=== PATIENT | female | born 1945 | race Caucasian/White ===

== ENCOUNTER 2016-07-10 10:03 | Inpatient (IN) | payer OTHER ==
[2016-07-08 11:44] LABS: MANUAL DIFF NEEDED? NO
[2016-07-08 11:59] LABS: BASO% 0.4 % (0.0-0.8); EOS# 0.23 X1000 (0.0-0.7); EOS% 2.9 % (0.0-10.0); HEMATOCRIT 30.3 % (37.0-47.0); HEMOGLOBIN 9.3 g/dL (12.0-16.0); IMM GRAN# 0.03 X1000 (0.0-0.04); IMM GRAN% 0.4 % (0.0-0.5); LYMPH# 0.91 X1000 (1.2-3.4); LYMPH% 11.5 % (20.5-51.1); MCH 28.8 PG (27-31); MCHC 30.7 g/dL (33-37); MCV 93.8 FL (81-99); MONO# 0.61 X1000 (0.11-0.59); MONO% 7.7 % (1.7-9.3); MPV 8.3 FL (7.4-10.4); NEUT% 77.1 % (42.2-75.2); PLT 412 X1000 (130-400); RBC 3.23 XMIL (4.2-5.4)
[2016-07-08 12:15] LABS: CALCIUM 9.5 mg/dL (8.8-10.2); POTASSIUM 4.1 mmol/L (3.5-5.1)
--- NOTE | 2016-07-08 12:30 | EKG Report ---
Test Performed on : 07/08/2016 11:26:52 AM Test Reason : PAT Blood Pressure : / mmHG Vent. Rate : 050 BPM Atrial Rate : 050 BPM P-R Int : 176 ms QRS Dur : 084 ms QT Int : 442 ms P-R-T Axes : 056 001 009 degrees QTc Int : 402 ms Sinus bradycardia. Inferior infarct , age undetermined Abnormal ECG When compared with ECG of 28-FEB-2016 14:54, Borderline criteria for Anterior infarct are no longer present Inferior infarct is now present Nonspecific T wave abnormality now evident in Inferior leads Confirmed by Azar CONLEY, Eric Hand ([id number]) on 07/08/2016 4:28:00 PM
[2016-07-10] MEDS ORDERED: REGLAN ONE (11:53)
[2016-07-10] MEDS ORDERED: LR 1,000 ML ONE ×3 (11:53→15:33)
[2016-07-10] MEDS ORDERED: PEPCID ONE (11:53)
[2016-07-10] MEDS ORDERED: KEFZOL 1 GM/D5W 50 ML ONE (11:54)
[2016-07-10] MEDS ORDERED: DIPRIVAN 1% ONE (12:08)
[2016-07-10] MEDS ORDERED: FENTANYL ONE (12:08)
[2016-07-10] MEDS ORDERED: VERSED ONE (12:08)
[2016-07-10] MEDS ORDERED: MARCAINE 0.25% PF/EPI 1:200,000 ONE (12:42)
[2016-07-10] MEDS ORDERED: METHYLENE BLUE 1% ONE ×2 (12:42)
--- NOTE | 2016-07-10 12:53 | Diag Imaging Result Document ---
PROCEDURE NAME: LYMPHOSCINTIGRAPHY W/IMG - 07/10/2016 LYMPHOSCINTIGRAPHY OF THE LEFT BREAST: COMPARISON: Outside MRI from 06/10/2016. FINDINGS: 534 mCi of radiotracer was injected. After the appropriate delay, there was visualization of at least 1 sentinel lymph node in the left axilla. IMPRESSION: Successful localization of sentinel lymph node in the left axilla.
[2016-07-10] MEDS: MORPHINE ONE ×3 (15:00→15:17)
--- NOTE | 2016-07-10 15:28 | OPERATIVE NOTE ---
PROCEDURE DATE: 07/10/2016 PROCEDURE: 1. [place] lymph node biopsy left axilla. 2. Bilateral total mastectomy. SURGEON: Chan Serrano MD DIRECTOR OF COLLECTIONS: Ana PREOPERATIVE DIAGNOSIS: Cancer of the left breast. POSTOPERATIVE DIAGNOSIS: Cancer of the left breast. FINDINGS: The sentinel lymph node biopsies, 3 specimens sent, 2 nodes identified, both were negative on frozen section. DESCRIPTION OF PROCEDURE: Satisfactory general endotracheal anesthesia was achieved, both breasts and axillae were prepped and draped in a sterile fashion. We started on the right side and made an elliptical type hang to cover the breast. We incised the skin, and carried it to the right axilla. We went into the subcutaneous tissue. We placed our breast hooks superiorly and developed the subcutaneous flap superiorly. We did the same inferiorly. After we had progressed down to the muscle superiorly and inferiorly. We then took the breast off the pectoralis major going from medial to lateral. As we came toward the axilla, we amputated the breast laterally. We achieved satisfactory hemostasis with electrocautery. We irrigated out the wound. We placed a Yasmany drain under the superior flap and brought it out medially, it went into toward the axilla and brought it out laterally, these were secured to the skin with 0 silk. We then closed the skin with satish. Negative pressure was applied to evacuate the space. We turned our attention to the left side and again made an elliptical hang around the nipple areolar complex extending it toward the axilla. We incised the skin into the subcutaneous tissue. We then progressed toward the axilla and into the axilla. We interrogated the axilla with the gamma probe, we identified 3 different areas that had activity. One was very hot at 6000, another was about 1500. The third 1 the #2 specimen we did do the count. We sent the 3 specimens for frozen section. We then developed the superior flap to this clavicle as we had done on the right side with an inferior flap to the rectus muscle and the serratus muscle. We then took the breast off from medial to lateral. As we came toward the axilla, we amputated the breast laterally. Frozen sections of the sentinel lymph nodes came back negative. Hemostasis was satisfactory. We placed a Yasmany drain under the superior flap, brought it out medially and one laterally into the axilla, secured them at the skin with the silk stitches again. We closed the skin with satish. Negative pressure was applied evacuating the space. Sterile dressings were applied. She tolerated it well, was sent to the recovery room in satisfactory condition. MTDD
[2016-07-10] MEDS ORDERED: MORPHINE ONE (15:32)
[2016-07-10] MEDS ORDERED: ZOFRAN ONE (15:32)
[2016-07-10] MEDS ORDERED: XYLOCAINE-MPF 2% ONE (15:33)
[2016-07-10] MEDS ORDERED: QUELICIN (DOSE) ONE (15:33)
[2016-07-10] MEDS ORDERED: EPHEDRINE ONE (15:33)
[2016-07-10] MEDS ORDERED: DECADRON ONE (15:33)
[2016-07-10] MEDS ORDERED: PHENERGAN ONE (16:00)
[2016-07-10] MEDS ORDERED: NORCO-10 PO PRN (16:15)
[2016-07-10] MEDS ORDERED: ZOFRAN IV PRN (16:15)
[2016-07-10] MEDS: LR 1,000 ML IV SCH ×2 (16:32→21:21)
[2016-07-10] MEDS: BUPRENEX IV PRN (16:48)
[2016-07-10] MEDS: KEFZOL 1 GM/D5W 50 ML IV SCH (21:21)
[2016-07-10] MEDS: ZYRTEC PO SCH (21:22)
[2016-07-10] MEDS: TOPAMAX PO SCH (21:22)
[2016-07-10] MEDS: RITALIN PO SCH (21:22)
[2016-07-10] MEDS: LYRICA PO SCH (21:22)
[2016-07-10] MEDS: COREG PO SCH (21:22)
[2016-07-10] MEDS: PERIDEX MT SCH (21:23)
[2016-07-11] MEDS: KEFZOL 1 GM/D5W 50 ML IV SCH (03:46)
[2016-07-11] MEDS: LR 1,000 ML IV SCH (03:46)
[2016-07-11] MEDS ORDERED: DESYREL PO SCH ×2 (09:00→21:00)
[2016-07-11] MEDS ORDERED: PRAVACHOL PO SCH ×2 (09:00→21:00)
[2016-07-11] MEDS ORDERED: LR 1,000 ML IV SCH (09:45)
[2016-07-11] MEDS: COREG PO SCH (10:01)
[2016-07-11] MEDS: PRILOSEC PO SCH (10:01)
[2016-07-11] MEDS: RITALIN PO SCH (10:01)
[2016-07-11] MEDS: PROCARDIA ER PO SCH (10:02)
[2016-07-11] MEDS: ZYRTEC PO SCH (10:02)
[2016-07-11] MEDS: TOPAMAX PO SCH (10:02)
[2016-07-11] MEDS: LYRICA PO SCH (10:03)
[2016-07-11] MEDS: KLOR-CON PO SCH (10:03)
[2016-07-11] MEDS: PERIDEX MT SCH (10:09)
[2016-07-11] MEDS: BUPRENEX IV PRN (12:48)
[2016-07-12] MEDS: RITALIN PO SCH ×2 (00:26→09:42)
[2016-07-12] MEDS: LYRICA PO SCH ×2 (00:28→09:43)
[2016-07-12] MEDS: TOPAMAX PO SCH ×2 (00:28→09:42)
[2016-07-12] MEDS: ZYRTEC PO SCH ×2 (00:28→09:42)
[2016-07-12] MEDS: PERIDEX MT SCH ×2 (00:28→09:48)
[2016-07-12] MEDS: COREG PO SCH ×2 (00:29→09:42)
[2016-07-12] MEDS: BUPRENEX IV PRN (04:58)
[2016-07-12] MEDS: KLOR-CON PO SCH (09:42)
[2016-07-12] MEDS: PROCARDIA ER PO SCH (09:42)
[2016-07-12] MEDS: PRILOSEC PO SCH (09:42)
[2016-07-12 11:17] VITALS: BP 149/71
== END 2016-07-12 15:10 | disposition home or self-care (01) | DRG 581 ==
LOC: OPS 10:03 → EDSTATUS 13:00 → 4N 15:31 → OBSVTOIN 15:31
PROVIDERS: ADMIT Surgery; ATTEND Surgery
PROC: 0HTV0ZZ Resection of Bilateral Breast, Open Approach (ICD-10-PCS; principal; 2016-07-10 12:23)
PROC: 07B60ZX Excision of Left Axillary Lymphatic, Open Approach, Diagnostic (ICD-10-PCS; 2016-07-10 12:23)
DX: C50.412 Malignant neoplasm of upper-outer quadrant of left female breast (principal); I10 Essential (primary) hypertension; E11.9 Type 2 diabetes mellitus without complications; E78.00 Pure hypercholesterolemia, unspecified; K21.9 Gastro-esophageal reflux disease without esophagitis; G47.33 Obstructive sleep apnea (adult) (pediatric); G25.81 Restless legs syndrome; M19.90 Unspecified osteoarthritis, unspecified site; E66.9 Obesity, unspecified; Z79.899 Other long term (current) drug therapy; Z68.36 Body mass index [BMI] 36.0-36.9, adult
CPT/HCPCS: 78195; 80048; 82948; 85025; 86850; 86900; 86901; 88305; 88307; 88313; 88331; 93005; 93010; 94761; 94799; A9520; J0330; J0592; J0690; J1100; J2250; J2270; J2405; J2550; J3010; J7120; Q9968